=== PATIENT | female | born 1965 | race Two or more races ===

== ENCOUNTER 2017-05-13 17:06 | Emergency (ER) | payer OTHER ==
[~2017-05-13] VITALS: Ht 154.9 cm; Wt 66.2 kg
--- NOTE | 2017-05-13 17:20 | PHYS DOC ---
Past Medical History Past Medical History: Diverticulitis, Hypertension, Other Additional Past Medical Histor: aortic regurg, spasmatic colon,lft kidney removed, renal stent,cardiac cath Past Surgical History: Hysterectomy, Other Additional Past Surgical Histo: bilateral thumbs Alcohol Use: None Drug Use: None Adult General Chief Complaint Chief Complaint: WRIST PAIN HPI HPI Patient is a 51 year old female who presents with fall on outstretched hand complaining of pain to the right wrist denies any other injury. Moderate severity onset prior to arrival. Movement makes it worse. Review of Systems Review of Systems Constitutional: Denies fever or chills [] Eyes: Denies change in visual acuity, redness, or eye pain [] HENT: Denies nasal congestion or sore throat [] Respiratory: Denies cough or shortness of breath [] Cardiovascular: No additional information not addressed in HPI [] GI: Denies abdominal pain, nausea, vomiting, bloody stools or diarrhea [] : Denies dysuria or hematuria [] Musculoskeletal: Denies back pain or joint pain [] Integument: Denies rash or skin lesions [] Neurologic: Denies headache, focal weakness or sensory changes [] Endocrine: Denies polyuria or polydipsia [] Current Medications Current Medications Current Medications Medications (Trade) Dose Ordered Sig/Kevin Start Time Stop Time Status Last Admin Dose Admin Hydromorphone HCl (Dilaudid) 1 mg 1X ONCE 05/13/17 18:53 05/13/17 18:54 DC 05/13/17 18:49 1 MG Lidocaine/Sodium Bicarbonate (Buffered Lidocaine 1%) 20 ml 1X ONCE 05/13/17 18:30 05/13/17 18:31 DC 05/13/17 18:50 20 ML Midazolam HCl (Versed) 0.5 mg 1X ONCE 05/13/17 18:30 05/13/17 18:53 DC 05/13/17 18:49 0.5 MG Ondansetron HCl (Zofran) 4 mg 1X ONCE 05/13/17 17:30 05/13/17 17:31 DC 05/13/17 17:34 4 MG Allergies Allergies Allergies Coded Allergies Type Severity Reaction Last Updated Verified Penicillins Allergy Unknown 12/26/15 Yes Sulfa (Sulfonamide Antibiotics) Allergy Unknown 12/26/15 Yes amoxicillin Allergy Unknown 12/26/15 Yes erythromycin base Allergy Unknown 12/26/15 Yes codeine Adverse Reaction Intermediate Blacks out when she stands up. 05/13/17 Yes Physical Exam Physical Exam Constitutional: Well developed, well nourished, no acute distress, non-toxic appearance. [] HENT: Normocephalic, atraumatic, bilateral external ears normal, oropharynx moist, no oral exudates, nose normal. [] Eyes: PERRLA, EOMI, conjunctiva normal, no discharge. [] Neck: Normal range of motion, no tenderness, supple, no stridor. [] Cardiovascular:Heart rate regular rhythm, no murmur [] Lungs & Thorax: Bilateral breath sounds clear to auscultation [] Abdomen: Bowel sounds normal, soft, no tenderness, no masses, no pulsatile masses. [] Skin: Warm, dry, no erythema, no rash. [] Back: No tenderness, no CVA tenderness. [] Extremities: No tenderness, no cyanosis, no clubbing, ROM intact, no edema. [ Except for right upper extremity: No pain to palpation of the right shoulder elbow or forearm with the exception of the distal forearm and wrist shows an obvious deformity to plus pulses in the wrist are grossly intact.] Neurologic: Alert and oriented X 3, normal motor function, normal sensory function, no focal deficits noted. [] Psychologic: Affect normal, judgement normal, mood normal. [] Current Patient Data Vital Signs Vital Signs Date Time Temp Pulse Resp B/P (MAP) Pulse Ox O2 Delivery O2 Flow Rate FiO2 05/13/17 18:49 74 122/58 (79) 95 Nasal Cannula 2.0 05/13/17 18:05 20 05/13/17 17:17 97.5 97.5 EKG EKG [] Radiology/Procedures Radiology/Procedures Right wrist [fracture distal right radius intra-articular comminuted impacted and displaced dorsally my interpretation] Course & Med Decision Making Course & Med Decision Making Pertinent Labs and Imaging studies reviewed. (See chart for details) Procedure: fracture reduction of closed right dist radius fracture: 1% lido hematoma block 10 ml instilled, consent obtained, timeout by me, traction counter traction w recreation of mechanism, adequate reduction of deformity, neurovasc intact post splint application, given dilaudid for pain and versed for anxiolysis, sugartong splint applied by me, good alignment post splint antoinette post reduction xray reviewed. arm sling applied. Discussed w ortho for plan of care. [] Dragon Disclaimer Dragon Disclaimer This electronic medical record was generated, in whole or in part, using a voice recognition dictation system. Departure Departure Impression: Primary Impression: Closed fracture of right distal radius Disposition: 01 HOME, SELF-CARE Condition: IMPROVED Referrals: ADA BRUNO MD (PCP) JUAN BARROW MD Patient Instructions: Splint Care, [id number], Wrist Fracture, [id number] Additional Instructions: call ortho office at 8 am to get seen in office tomorrow to be set up for surgery this week. Scripts Oxycodone/Apap 5-325 (PERCOCET 5-325 MG TABLET) 1 Each Tablet 1 TAB PO PRN Q6HRS Y for PAIN, #14 TAB 0 Refills Prov: ANGEL MARQUIS MD 05/13/17 ANGEL MARQUIS MD May 13, 2017 17:20
[2017-05-13] MEDS ORDERED: ONDANSETRON PF 4 MG/2 ML VIAL. IV ONE (17:30)
[2017-05-13] MEDS ORDERED: HYDROmorphone 2 MG/ML VIAL IV ONE ×3 (17:30→18:53)
[2017-05-13] MEDS ORDERED: LIDOCAINE 1% / SOD BICARB 8.4% 20 ML VIAL. IJ ONE ×2 (18:19→18:30)
[2017-05-13] MEDS ORDERED: MIDAZOLAM HCL/PF 2 MG/2 ML VIAL. ONE (18:27)
[2017-05-13] MEDS ORDERED: MIDAZOLAM HCL/PF 2 MG/2 ML VIAL. IV ONE (18:30)
[2017-05-13 18:49] VITALS: BP 122/58
[2017-05-13] MEDS ORDERED: OXYC-323 PO (19:11)
--- NOTE | 2017-05-14 07:59 | RAD ---
Exam performed: 3 views wrist. History: Fall, right wrist pain, Pre and Postreduction radiograph. Date of service: 05/13/17 at 1847 and 1719 hours. 3 views right wrist at 1719 hours findings: Severely comminuted fractured distal right radius with dorsal dilation of the distal fracture fragment and obvious deformity is noted. There is diffuse soft tissue swelling. Early degenerative changes about the first carpometacarpal joint. No foreign body. Postreduction radiograph redemonstrates severely comminuted distal radial fracture which appears slightly improved alignment since previously. There is a small ossific fragment projecting distal to the ulna, suspected avulsion ultrasound process. Fine bony details obscured by the casting material. Impression: Comminuted intra-articular fracture distal right radius. Postreduction radiographs demonstrate improved alignment and positioning although fine bony details are obscured by the casting material
--- NOTE | 2017-05-14 13:52 | RAD ---
Exam performed: 3 views wrist. History: Fall, right wrist pain, Pre and Postreduction radiograph. Date of service: 05/13/17 at 1847 and 1719 hours. 3 views right wrist at 1719 hours findings: Severely comminuted fractured distal right radius with dorsal dilation of the distal fracture fragment and obvious deformity is noted. There is diffuse soft tissue swelling. Early degenerative changes about the first carpometacarpal joint. No foreign body. Postreduction radiograph redemonstrates severely comminuted distal radial fracture which appears slightly improved alignment since previously. There is a small ossific fragment projecting distal to the ulna, suspected avulsion ultrasound process. Fine bony details obscured by the casting material. Impression: Comminuted intra-articular fracture distal right radius. Postreduction radiographs demonstrate improved alignment and positioning although fine bony details are obscured by the casting material DICTATED and SIGNED BY: ALEENA EDOUARD MD DATE: 05/14/17 0752 MTDD
[2017-05-17] MEDS ORDERED: AMLO5TAB2 PO (11:17)
[2017-05-17] MEDS ORDERED: DULO30CA2 PO (11:17)
== END 2017-05-13 19:25 | disposition home or self-care (01) ==
LOC: ER 17:06
DX: S52.501A Unspecified fracture of the lower end of right radius, initial encounter for closed fracture (principal); I10 Essential (primary) hypertension; Z98.890 Other specified postprocedural states; Z88.0 Allergy status to penicillin; Z88.1 Allergy status to other antibiotic agents; Z88.2 Allergy status to sulfonamides; Z88.5 Allergy status to narcotic agent; W18.39XA Other fall on same level, initial encounter; Y93.89 Activity, other specified; Y99.8 Other external cause status; Y92.89 Other specified places as the place of occurrence of the external cause
CPT/HCPCS: 25605; 73110; 96374; 96375; 96376; 99284; J1170; J2250; J2405

== ENCOUNTER → 2017-05-17 | Outpatient (CLI) | payer OTHER ==
[2017-05-13 18:49] VITALS: BP 122/58
[~2017-05-17] MED LIST: AMLO5TAB2 PO; DULO30CA2 PO; OXYC-323 PO
[2017-05-17 11:43] LABS: BASO # 0.1 x10^3/uL (0.0-0.2); BASO % 1 % (0-3); EOS % 2 % (0-3); HEMATOCRIT 42.8 % (36.0-47.0); HEMOGLOBIN 14.8 g/dL (12.0-15.5); LYMPH # 1.9 x10^3/uL (1.0-4.8); LYMPH % 24 % (24-48); MEAN CORPUSCULAR HEMOGLOBIN 33 pg (25-35); MEAN CORPUSCULAR HGB CONC 35 g/dL (31-37); MEAN CORPUSCULAR VOLUME 95 fL (79-100); MONO % 6 % (0-9); NEUT % 68 % (31-73); PLATELET COUNT 264 x10^3/uL (140-400); RED BLOOD COUNT 4.49 x10^6/uL (3.50-5.40); RED CELL DISTRIBUTION WIDTH 14.3 % (11.5-14.5); WHITE BLOOD COUNT 7.8 x10^3/uL (4.0-11.0)
[2017-05-17 11:47] LABS: ALBUMIN 3.3 g/dL (3.4-5.0); ALBUMIN/GLOBULIN RATIO 0.8 (1.0-1.7); CALCIUM 8.8 mg/dL (8.5-10.1); CREATININE 1.2 mg/dL (0.6-1.0); GFR 47.2; TOTAL BILIRUBIN 0.7 mg/dL (0.2-1.0); TOTAL PROTEIN 7.2 g/dL (6.4-8.2)
[2017-05-17 11:59] LABS: INR 0.9 (0.8-1.1)
--- NOTE | 2017-05-17 15:24 | RAD ---
PA and lateral chest radiographs 05/17/2017 Clinical history: Preoperative evaluation prior to right wrist surgery. PA and lateral digital radiographs of the chest were obtained. No previous studies are available for comparison. The cardiac silhouette is normal in size. The thoracic aorta is mildly tortuous. No acute pulmonary infiltrate is seen. No pleural effusion or pneumothorax is noted. Surgical clips are seen within the right upper quadrant of the abdomen consistent with a cholecystectomy. Mild S-shaped curvature of the thoracolumbar spine is seen. Impression: No acute abnormality is seen.
== END | disposition home or self-care (01) ==
LOC: SURGPAT 10:35
PROVIDERS: ATTEND Orthopaedic Surgery
DX: Z01.818 Encounter for other preprocedural examination (principal)
CPT/HCPCS: 36415; 71020; 80053; 83036; 85025; 85610; 85730

== ENCOUNTER → 2017-05-18 | Outpatient (CLI) | payer OTHER ==
[2017-05-13 18:49] VITALS: BP 122/58
--- NOTE | 2017-05-18 13:48 | CARD ---
APPROVED REPORT EXAM: Two-dimensional and M-mode echocardiogram with Doppler and color Doppler. Other Information Quality : Good INDICATION Aortic Valve Disease 2D DIMENSIONS RVDd2.1 (2.9-3.5cm)Left Atrium(2D)3.4 (1.6-4.0cm) IVSd1.4 (0.7-1.1cm)Aortic Root(2D)2.5 (2.0-3.7cm) LVDd4.5 (3.9-5.9cm)LVOT Diameter1.9 (1.8-2.4cm) PWd1.3 (0.7-1.1cm)LVDs2.8 (2.5-4.0cm) FS (%) 30.0 %SV61.4 ml LVEF(%)60.0 (>50%) M-Mode DIMENSIONS Aortic Cusp Exc1.44 (1.5-2.0cm) Aortic Valve AoV Peak Alin.221.0cm/sAoV VTI45.0cm AO Peak GR.19.5mmHgLVOT VTI 24.22cm AO Mean GR.11mmHgAVA (VTI)1.60cm2 AI P 1/2 [id number] Mitral Valve MV E Usjbvgnz57.0cm/sMV DECEL [id number] MV A Xjdgpyqs924.2cm/sE/A Ratio0.8 TDI Lateral E' P. V6.37cm/sMedial E' P. V5.21cm/s E/Lateral E'13.5E/Medial E'16.5 Tricuspid Valve TR P. Echlqmhw483yt/sRAP ASRCOPQJ5hdXe TR Peak Gr.30dwSqNDDX85flUj Pulmonary Vein S1 Zbszjdjb67.3cm/sS2 Ymtrtsby81.83cm/s D2 Nshwydzz41.8cm/s LEFT VENTRICLE The left ventricle is normal size. There is mild concentric left ventricular hypertrophy. The left ve ntricular systolic function is normal. The Ejection Fraction is 55-60%. There is normal LV segmental wall motion. Transmitral Doppler flow pattern is Grade I-abnormal relaxation pattern. RIGHT VENTRICLE The right ventricle is normal size. The right ventricular systolic function is normal. ATRIA The left atrium size is normal. The right atrium size is normal. The interatrial septum is intact wit h no evidence for an atrial septal defect or patent foramen ovale as noted on 2-D or Doppler imaging. AORTIC VALVE The aortic valve is mildly thickened with decreased opening. Doppler and Color Flow revealed mild to moderate aortic regurgitation. Calculated aortic valve area is 1.6 cm2 with maximum pressure gradient of 20 mmHg and mean pressure gradient of 11 mmHg. Doppler and color-flow analysis revealed mild aort ic stenosis. MITRAL VALVE The mitral valve is calcified but opens well. There is no evidence of mitral valve prolapse. There is no mitral valve stenosis. Doppler and Color-flow revealed mild mitral regurgitation. TRICUSPID VALVE The tricuspid valve is normal in structure and function. Doppler and Color Flow revealed trace tricus pid regurgitation. There is mild pulmonary hypertension. The PA pressure was estimated at 34 mmHg. Th ere is no tricuspid valve stenosis. PULMONIC VALVE The pulmonary valve is normal in structure and function. Doppler and Color Flow revealed trace pulmon ic valvular regurgitation. There is no pulmonic valvular stenosis. GREAT VESSELS The aortic root is normal in size. The ascending aorta is normal in size. The IVC is normal in size a nd collapses >50% with inspiration. PERICARDIAL EFFUSION There is no evidence of significant pericardial effusion. Critical Notification Critical Value: No <Conclusion> The left ventricular systolic function is normal. The Ejection Fraction is 55-60%. There is normal LV segmental wall motion. Transmitral Doppler flow pattern is Grade I-abnormal relaxation pattern. Mild aortic stenosis. Mild to moderate aortic regurgitation. Mild mitral regurgitation. Trace tricuspid regurgitation. The PA pressure was estimated at 34 mmHg. There is no evidence of significant pericardial effusion.
== END | disposition home or self-care (01) ==
LOC: ECHO 10:40
PROVIDERS: ATTEND Internal Medicine Cardiovascular Disease
DX: I08.3 Combined rheumatic disorders of mitral, aortic and tricuspid valves (principal); I27.2 Other secondary pulmonary hypertension; I35.0 Nonrheumatic aortic (valve) stenosis
CPT/HCPCS: 93306

== ENCOUNTER → 2017-05-29 | Day surgery (SDC) | payer OTHER ==
--- NOTE | 2017-05-28 12:22 | PDOC1 ---
History and Physical Date of Admission Date of Admission DATE: 05/29/17 Identification/Chief Complaint Chief Complaint right wrist pain Problems: Source Source: Chart review History of Present Illness History of Present Illness The patient is a 51 year old female with right wrist pain. She slipped on a deck on 05.13.17 and fell on an outstretched hand. She was reduced at [facility] on 05.13.17 after xrays showed a comminuted intra-articular fracture of her distal right radius. She has a history of bilateral CMC joint reconstruction with palmar oblique ligament reconstruction using FCR tendon autograft. Past Medical History Cardiovascular: HTN Past Surgical History Past Surgical History bilateral thumb CMC joint arthroplasty Past Surgical History: Cholecystectomy, Hysterectomy Family History Family History: Diabetes, Heart Disease, Hypertension, Kidney Disease Social History Smoke: 1 pack per day ALCOHOL: none Drugs: None Current Medications Current Medications Active Scripts Active Percocet 5-325 Mg Tablet (Oxycodone/Acetaminophen) 1 Each Tablet 1 Tab PO PRN Q6HRS PRN Reported Cymbalta (Duloxetine Hcl) 30 Mg Capsule. 1 Cap PO DAILY Amlodipine Besylate 5 Mg Tablet 5 Mg PO DAILY Allergies Allergies: Coded Allergies: Penicillins (Verified Allergy, Intermediate, 05/28/17) Sulfa (Sulfonamide Antibiotics) (Verified Allergy, Intermediate, 05/28/17) amoxicillin (Verified Allergy, Intermediate, 05/28/17) erythromycin base (Verified Allergy, Intermediate, 05/28/17) adhesive tape (Verified Allergy, Mild, Rash, 05/28/17) codeine (Verified Adverse Reaction, Intermediate, Blacks out when she stands up., 05/28/17) Physical Exam General: Alert, Oriented X3, Cooperative, No acute distress HEENT: Atraumatic, EOMI Lungs: Normal air movement Heart: RRR Extremities: No clubbing, No cyanosis, Normal pulses, Other (The wrist is in a splint. There is swelling at the wrist and fingers. well healed surgical scars. The alignment is near normal. There is obvious tenderness at the wrist. Motion is decreased but there is no evidence of specific neurovascular injury. Capillary refill is normal. Pulse is not assessable due to the tenderness of the wrist. Light touch sensation is slightly decreased. Motor function is present for the radial ulnar and median nerves.) Skin: No rashes, No breakdown, No significant lesion Neuro: Normal speech, Sensation intact Psych/Mental Status: Mental status NL, Mood NL Images Images X-Ray report reviewed X-Ray visual images independently reviewed. [facility] on 05.13.17 after xrays showed a comminuted intra-articular fracture of her distal right radius. VTE Prophylaxis Ordered VTE Prophylaxis Devices: Yes VTE Pharmacological Prophylaxi: Yes Assessment/Plan Assessment/Plan Dr. Spangler recommended open reduction and internal fixation of the right wrist fracture. Risks of surgery were discussed and she agrees to proceed. She will increase her Oxycodone for more pain management before surgery. The patient understands they will need to obtain pre-operative clearance from their primary care doctor and inventory accountant prior to surgery. Followup 10-14 days after surgery. LG PIERCE May 28, 2017 12:22
[~2017-05-29] VITALS: Ht 158.8 cm; Wt 65.8 kg
[~2017-05-29] MED LIST changes: +BUPIVACAINE-EPI 0.25%-1:200000 MPF 30 ML VIAL. ONE; +CLINDAMYCIN 600MG PREMIX 50 ML IV PRN; +DEXAMETHASONE SOD PHOS 20 MG/5 ML VIAL. ONE; +IV RINGERS,LACTATED 1000ML 1,000 ML IV SCH; +LABETALOL 20 MG/4 ML DISP.SYRIN. ONE; +LIDOCAINE 1% 1 ML SYRINGE. ID PRN; +LIDOCAINE 2% PF Vial for OR 5 ML VIAL. ONE; +MIDAZOLAM HCL/PF 2 MG/2 ML VIAL. ONE; +ONDANSETRON PF 4 MG/2 ML VIAL. IV PRN; +ONDANSETRON PF 4 MG/2 ML VIAL. ONE; +PHENYLEPHRINE in 0.9% NACL PF 1 MG/10 ML DISP.SYRIN. IV ONE; +PROCHLORPERAZINE 10 MG/2 ML VIAL. IV PRN; +PROPOFOL 20 ML IV ONE; +SEVOFLURANE 61 TO 120 MINUTES. IH ONE; +SEVOFLURANE > 120 MINUTES. IH ONE; +ePHEDrine PF IN SALINE 50 MG/5 ML DISP.SYRIN IV ONE; +fentaNYL PF VIAL 100 MCG/2 ML VIAL IV PRN; +fentaNYL PF VIAL 100 MCG/2 ML VIAL ONE; +oxyCODONE/APAP 5/325 1 TAB TABLET PO PRN
[2017-05-29] MEDS: fentaNYL PF VIAL 100 MCG/2 ML VIAL IV PRN ×4 (13:20→14:17)
--- NOTE | 2017-05-29 13:36 | PDOC4 ---
Operative Note Operative Note DATE: May 29, 2017 PREOPERATIVE DIAGNOSIS: right distal radius intra-articular fracture with displacement. POSTOPERATIVE DIAGNOSIS: Same. PROCEDURE: Open treatment with internal fixation, intraarticular 3 or more part fracture. SURGEON: Juan Spangler MD. PRODUCT DEVELOPMENT COORDINATOR: Dominique Evans PA-C ANESTHESIA: General. ESTIMATED BLOOD LOSS: 25 mL. COMPLICATIONS: None. SPECIMENS: None. DRAINS: None. Tourniquet time: 72 minutes INDICATION FOR PROCEDURE: The patient is a 51 year-old who fell fracturing the wrist. X-rays showed an intraarticular fracture with displacement and shortening. I recommended open treatment with internal fixation. We talked about potential risks of surgery such as bleeding, infection, stiffness, need for hardware removal or other potential surgical or anesthetic complications. The patient stated understanding of the risks, benefits and alternatives. Written consent was obtained and the patient desired to proceed with surgery. PROCEDURE IN DETAIL: The patient was identified in the preoperative holding area. The correct wrist was marked by the surgeon. The patient was taken to the operating room, where a general anesthetic was used. Preoperative antibiotics were given intravenously. A timeout procedure was performed. Tourniquet was used on the upper arm. The limb was prepped sterilely and sterile drapes were applied. An Esmarch bandage was used to exsanguinate the limb and the tourniquet was inflated to 275 mmHg. The volar approach of Peng was used distally. Sharp dissection was used and Bovie electrocautery was used as needed for hemostasis. The flexor carpi radialis tendon was retracted ulnarly to protect the median nerve. The brachioradialis was retracted radially to protect the radial artery. My accounting manager assistant controller held small Hohmann retractors on the radial side of the distal fragment and ulnar side of the proximal fragment to help maintain reduction. A Weitlaner retractor was also placed. Subperiosteal dissection of the pronator quadratus was performed after an L incision was made and the muscle was reflected across the fracture site. The fracture was easily identified but markedly displaced, comminuted and unstable. I performed a reduction first using a [place] elevator to disimpact the fragments, and using longitudinal traction, palmar angulation and ulnar deviation. My accounting manager assistant controller held this reduction using a towel distally to help maintain the hand position as well as the traction, and then I applied the volar locked plate. We also used preliminary K-wire fixation. I placed cortical nonlocking screws proximally and locking screws distally and more locking screws proximally and I confirmed the intraarticular reduction with multiple checks on the image intensifier as I placed the screws. I checked the fixation, and one of the screws appeared intra- articular. I tried to remove that screw in the usual fashion, but the head broke off. I made a dorsal incision and was able to identify the screw and remove it by advancing it from dorsal to volar. It was intra-articular but had not caused any damage to the joint except for the tiny perforation in the radial articular surface. The intra-articular reduction appeared anatomic. After satisfactory reduction and satisfactory fixation with all the screws, final images were taken. 2.5 mL of demineralized bone matrix was added due to the severely comminuted fracture, with poor underlying bone quality. Copious irrigation was used. The tourniquet was released and Bovie electrocautery was used for hemostasis. Local anesthetic was injected. The incision was closed with 3-0 Vicryl on the pronator quadratus, 3-0 Vicryl in the subcutaneous tissues and lindsay in the skin. Xeroform and a sterile dressing and a volar splint were applied. Needle and sponge counts were correct. There were no apparent complications. JUAN SPANGLER MD May 29, 2017 13:36
[2017-05-29] MEDS: LABETALOL 20 MG/4 ML DISP.SYRIN. IVP PRN ×2 (13:42→14:49)
[2017-05-29 15:10] VITALS: BP 169/66
== END | disposition home or self-care (01) ==
LOC: SURG 06:39
PROVIDERS: ATTEND Orthopaedic Surgery
DX: S52.571A Other intraarticular fracture of lower end of right radius, initial encounter for closed fracture (principal); X58.XXXA Exposure to other specified factors, initial encounter; Y93.89 Activity, other specified; Y92.89 Other specified places as the place of occurrence of the external cause; Y99.9 Unspecified external cause status; I10 Essential (primary) hypertension; Z90.49 Acquired absence of other specified parts of digestive tract; Z90.710 Acquired absence of both cervix and uterus; Z87.39 Personal history of other diseases of the musculoskeletal system and connective tissue; M19.91 Primary osteoarthritis, unspecified site; F41.9 Anxiety disorder, unspecified; Z72.0 Tobacco use; Z88.6 Allergy status to analgesic agent; Z88.1 Allergy status to other antibiotic agents; Z88.0 Allergy status to penicillin; Z88.2 Allergy status to sulfonamides; Z91.048 Other nonmedicinal substance allergy status
CPT/HCPCS: 25608; 36415; 86850; 86900; 86901; A4215; C1713; J0780; J1100; J2250; J2370; J2405; J2704; J3010; J3490; J2001

== ENCOUNTER → 2017-05-31 | Outpatient (CLI) | payer OTHER ==
[2017-05-29 15:10] VITALS: BP 169/66
[~2017-05-31] MED LIST changes: -BUPIVACAINE-EPI 0.25%-1:200000 MPF 30 ML VIAL. ONE; -CLINDAMYCIN 600MG PREMIX 50 ML IV PRN; -DEXAMETHASONE SOD PHOS 20 MG/5 ML VIAL. ONE; -IV RINGERS,LACTATED 1000ML 1,000 ML IV SCH; -LABETALOL 20 MG/4 ML DISP.SYRIN. ONE; -LIDOCAINE 1% 1 ML SYRINGE. ID PRN; -LIDOCAINE 2% PF Vial for OR 5 ML VIAL. ONE; -MIDAZOLAM HCL/PF 2 MG/2 ML VIAL. ONE; -ONDANSETRON PF 4 MG/2 ML VIAL. IV PRN; -ONDANSETRON PF 4 MG/2 ML VIAL. ONE; -PHENYLEPHRINE in 0.9% NACL PF 1 MG/10 ML DISP.SYRIN. IV ONE; -PROCHLORPERAZINE 10 MG/2 ML VIAL. IV PRN; -PROPOFOL 20 ML IV ONE; -SEVOFLURANE 61 TO 120 MINUTES. IH ONE; -SEVOFLURANE > 120 MINUTES. IH ONE; -ePHEDrine PF IN SALINE 50 MG/5 ML DISP.SYRIN IV ONE; -fentaNYL PF VIAL 100 MCG/2 ML VIAL IV PRN; -fentaNYL PF VIAL 100 MCG/2 ML VIAL ONE; -oxyCODONE/APAP 5/325 1 TAB TABLET PO PRN
== END | disposition home or self-care (01) ==
LOC: LAB 10:01
PROVIDERS: ATTEND Physician Assistant Surgical
DX: S52.501D Unspecified fracture of the lower end of right radius, subsequent encounter for closed fracture with routine healing (principal); X58.XXXD Exposure to other specified factors, subsequent encounter
CPT/HCPCS: 36415; 82306

== ENCOUNTER → 2018-03-12 | Outpatient (CLI) | payer OTHER | END | disposition home or self-care (01) | LOC: KCIC MAMMO 12:00 | DX: Z12.31 Encounter for screening mammogram for malignant neoplasm of breast (principal) | CPT/HCPCS: 77067 ==

== ENCOUNTER → 2018-06-21 | Outpatient (CLI) | payer OTHER ==
[2017-05-29 15:10] VITALS: BP 169/66
[~2018-06-21] MED LIST changes: -AMLO5TAB2 PO; +AMLO5TAB7 PO
--- NOTE | 2018-06-21 11:49 | CARD ---
MR#: [id number] Date of Study: 06/21/2018 Ordering Physician: ANIKET CELIS, Referring Physician: ANIKET CELIS, Tech: Tiffany Aguiar [facility] APPROVED REPORT EXAM: Two-dimensional and M-mode echocardiogram with Doppler and color Doppler. Other Information Quality : Good INDICATION Aoritc Regurgitation 2D DIMENSIONS RVDd2.4 (2.9-3.5cm)Left Atrium(2D)3.3 (1.6-4.0cm) IVSd1.1 (0.7-1.1cm)Aortic Root(2D)2.5 (2.0-3.7cm) LVDd4.5 (3.9-5.9cm)LVOT Diameter1.9 (1.8-2.4cm) PWd1.2 (0.7-1.1cm)LVDs3.0 (2.5-4.0cm) FS (%) 32.0 %SV55.1 ml LVEF(%)60.4 (>50%) Aortic Valve AoV Peak Alin.234.5cm/sAoV VTI46.5cm AO Peak GR.22.0mmHgLVOT Peak Alin.86.6cm/s AO Mean GR.10mmHgAVA (VMAX)1.07cm2 JORGE (VTI)1.38cj8QK P 1/2 Vcgu031xk Mitral Valve MV E Iwolhhhf11.9cm/sMV DECEL [id number] MV A Ginetzva419.4cm/sE/A Ratio0.7 Tricuspid Valve TR P. Cevgtdbb242mo/sRAP ZMEALNGZ8snIj TR Peak Gr.70ulStOBKQ25hbPn Pulmonary Vein S1 Nhgowtzq12.0cm/sD2 Uvjbwsnn85.7cm/s LEFT VENTRICLE The left ventricle is normal size. There is mild concentric left ventricular hypertrophy. The left ve ntricular systolic function is normal. The Ejection Fraction is 55-60%. There is normal LV segmental wall motion. Transmitral Doppler flow pattern is Grade I-abnormal relaxation pattern. RIGHT VENTRICLE The right ventricle is normal size. The right ventricular systolic function is normal. ATRIA The left atrium size is normal. The right atrium size is normal. The interatrial septum is intact wit h no evidence for an atrial septal defect or patent foramen ovale as noted on 2-D or Doppler imaging. AORTIC VALVE The aortic valve is calcified but opens well. Doppler and Color Flow revealed mild aortic regurgitati on. Calculated aortic valve area is 1.6 cm2 with maximum pressure gradient of 22 mmHg and mean pressu re gradient of 11 mmHg. Doppler and color-flow analysis revealed mild aortic stenosis. MITRAL VALVE The mitral valve is normal in structure and function. There is no evidence of mitral valve prolapse. There is no mitral valve stenosis. Doppler and Color-flow revealed trace to mild mitral regurgitation . TRICUSPID VALVE The tricuspid valve is normal in structure and function. Doppler and Color Flow revealed physiologica l tricuspid regurgitation. The PA pressure was estimated at 27 mmHg. There is no tricuspid valve sten osis. PULMONIC VALVE The pulmonic valve is not well visualized. Doppler and Color Flow revealed trace to mild pulmonic alok vular regurgitation. There is no pulmonic valvular stenosis. GREAT VESSELS The aortic root is normal in size. The ascending aorta is normal in size. The IVC is normal in size a nd collapses >50% with inspiration. PERICARDIAL EFFUSION There is no evidence of significant pericardial effusion. Critical Notification Critical Value: No <Conclusion> The left ventricular systolic function is normal. The Ejection Fraction is 55-60%. There is normal LV segmental wall motion. Transmitral Doppler flow pattern is Grade I-abnormal relaxation pattern. Mild aortic stenosis. Mild aortic regurgitation. Trace to mild mitral regurgitation. There is no evidence of significant pericardial effusion. Signed by : Song Walker, Electronically Approved : 06/21/2018 11:47:45
--- NOTE | 2018-06-21 12:24 | RAD ---
MR#: [id number] Date of Study: 06/21/2018 Ordering Physician: ANIKET CELIS, Referring Physician: ANIKET CELIS, Tech: Latrice Delcid, DONAVAN, RVT, RTR APPROVED REPORT Patient Location: OUT-PATIENT Indications Peripheral Vascular Disease and Atrophic Left Kidney Renal Artery Doppler Right Renal Artery Left Renal Arter y Proximal 213.1/41.4 cm/secProximal Mid 150.2/34.4 cm/secMid Distal 132.7/28.2 cm/secDistal Renal/Aorta Ratio 2.23Renal/Aorta Ratio Prox. Resistive Index 0.81Prox. Resistive Index Mid Resistive Index 0.77Mid Resistive Index Distal Resistive Index 0.79Distal Resistive Index Rt. Segmental A. 33.7/10.8 cm/secLt. Segmental A. Aortic Doppler VelocityWaveform Mid. Aorta 95.4 cm/secBiphasic Findings Grayscale images of the left kidney were significantly limited likely due to atrophic kidney and/or p rior nephrectomy. Based on prior CT scans it appears that the left kidney is atrophic. Spectral waveforms in the right proximal, middle and distal renal arteries are suggestive of mild tomas nosis most prominent in the proximal right renal artery. The peak systolic velocities a proximally 21 3 7 m/s with a resistive indices of 0.81 and a renal to aortic ratio of 2.2. Grossly based on velocit y criteria this would constitute less than 50% stenosis. The right kidney measures 11.1 x 4.2 x 4.8 c m. Critical Notification Critical Value: No <Conclusion> Probable mild proximal right renal artery stenosis. No significant focal stenosis identified. Signed by : Aniket Celis, Electronically Approved : 06/21/2018 12:23:18
== END | disposition home or self-care (01) ==
LOC: US 10:09
PROVIDERS: ATTEND Internal Medicine Cardiovascular Disease
DX: I35.1 Nonrheumatic aortic (valve) insufficiency (principal); I10 Essential (primary) hypertension; M19.90 Unspecified osteoarthritis, unspecified site; F41.9 Anxiety disorder, unspecified; F17.200 Nicotine dependence, unspecified, uncomplicated; Z90.49 Acquired absence of other specified parts of digestive tract; Z86.010 Personal history of colon polyps; Z90.710 Acquired absence of both cervix and uterus
CPT/HCPCS: 93306; 93975

== ENCOUNTER → 2020-03-16 | Outpatient (CLI) | payer OTHER ==
[2019-08-01 11:00] VITALS: BP 139/55
[~2020-03-16] MED LIST changes: +AMLO5TAB10 PO; -AMLO5TAB7 PO; +EVOL140S2 SQ; -OXYC-323 PO; +OXYC1TAB15 PO; +SPIR25TA5 PO
--- NOTE | 2020-03-16 16:05 | CARD ---
MR#: [id number] Date of Study: 03/16/2020 Ordering Physician: ANIKET CELIS, Referring Physician: ANIKET CELIS, Tech: Tiffany Aguiar [facility] APPROVED REPORT EXAM: Two-dimensional and M-mode echocardiogram with Doppler and color Doppler. Other Information Quality : Good INDICATION Aortic Insufficiency 2D DIMENSIONS RVDd2.1 (2.9-3.5cm)Left Atrium(2D)2.3 (1.6-4.0cm) IVSd0.9 (0.7-1.1cm)Aortic Root(2D)2.7 (2.0-3.7cm) LVDd4.5 (3.9-5.9cm)LVOT Diameter2.0 (1.8-2.4cm) PWd1.0 (0.7-1.1cm)LVDs3.3 (2.5-4.0cm) FS (%) 28.0 %SV50.6 ml LVEF(%)54.3 (>50%) Aortic Valve AoV Peak Alin.268.4cm/sAoV VTI48.6cm AO Peak GR.28.8mmHgLVOT Peak Alin.124.3cm/s AO Mean GR.15mmHgAVA (VMAX)1.47cm2 JORGE (VTI)1.26xv9GU P 1/2 Hfxa492kl Mitral Valve MV E Gpgowonw13.7cm/sMV DECEL MXZH026mm MV A Jwtisjjr316.6cm/sE/A Ratio0.6 Tricuspid Valve TR P. Szcqdlss923zd/sRAP KOOVYARF1pxQa TR Peak Gr.40bpMjVBOF51bfVo Pulmonary Vein S1 Usrbbeur67.9cm/sD2 Cbftvuvc34.2cm/s LEFT VENTRICLE The left ventricle is normal size. There is normal left ventricular wall thickness. The left ventricu lar systolic function is normal and the ejection fraction is within normal range. The Ejection Fracti on is 55-60%. There is normal LV segmental wall motion. Transmitral Doppler flow pattern is Grade I-a bnormal relaxation pattern. RIGHT VENTRICLE The right ventricle is normal size. The right ventricular systolic function is normal. ATRIA The left atrium size is normal. The right atrium size is normal. The interatrial septum is intact wit h no evidence for an atrial septal defect or patent foramen ovale as noted on 2-D or Doppler imaging. AORTIC VALVE The aortic valve is calcified and displays decreased opening. Doppler and Color Flow revealed eccentr ic, moderate aortic regurgitation. Calculated aortic valve area is 1.7 cm2 with maximum pressure grad ient of 29 mmHg and mean pressure gradient of 15 mmHg. Doppler and color-flow analysis revealed mild aortic stenosis. MITRAL VALVE The mitral valve is calcified but opens well. There is no evidence of mitral valve prolapse. There is no mitral valve stenosis. Doppler and Color-flow revealed trace mitral regurgitation. TRICUSPID VALVE The tricuspid valve is normal in structure and function. Doppler and Color Flow revealed no tricuspid valve regurgitation noted. There is no tricuspid valve stenosis. PULMONIC VALVE The pulmonic valve is not well visualized. Doppler and Color Flow revealed no pulmonic valvular regur gitation. There is no pulmonic valvular stenosis. GREAT VESSELS The aortic root is normal in size. The ascending aorta is normal in size. The IVC is normal in size a nd collapses >50% with inspiration. PERICARDIAL EFFUSION There is no evidence of significant pericardial effusion. Critical Notification Critical Value: No <Conclusion> The left ventricular systolic function is normal and the ejection fraction is within normal range. Th e Ejection Fraction is 55-60%. There is normal LV segmental wall motion. Calculated aortic valve area is 1.7 cm2 with maximum pressure gradient of 29 mmHg and mean pressure g radient of 15 mmHg. Doppler and color-flow analysis revealed mild aortic stenosis. Doppler and Color Flow revealed eccentric, moderate aortic regurgitation. Signed by : Aniket Celis, Electronically Approved : 03/16/2020 16:04:23
--- NOTE | 2020-03-16 16:17 | RAD ---
MR#: [id number] Date of Study: 03/16/2020 Ordering Physician: ANIKET CELIS, Referring Physician: ANIKET CELIS, Tech: Latrice Delcid, DONAVAN, RVT, RTR APPROVED REPORT Patient Location: OUT-PATIENT Indications Uncontrolled HTN Risk Factors Peripheral Vascular Disease; Atrophic Left Kidney Renal Artery Doppler Right Renal Artery Left Renal Arter y Proximal 145.6/33.9 cm/secProximal Mid 160.3/38.2 cm/secMid Distal 71.8/18.2 cm/secDistal Renal/Aorta Ratio 0.00Renal/Aorta Ratio Prox. Resistive Index 0.77Prox. Resistive Index Mid Resistive Index 0.76Mid Resistive Index Distal Resistive Index 0.75Distal Resistive Index Rt. Segmental A. 33.8/9.1 cm/secLt. Segmental A. Renal Measurements RightLeft Kidney Dapeot35.54 cm 4.41 cmKidney Length Right Additional FindingsLeft Additional Findings Aortic Doppler VelocityWaveform Mid. Aorta 88.3 cm/sec Findings Grayscale images of the right kidney demonstrate normal size. The proximal, distal and mid renal art joaquin velocities are grossly within normal limits with normal resistive indices and renal to aortic rat ios. Overall this is a technically difficult study. In the left iliac fossa the left kidney is not well v isualized and likely is very atrophic. Critical Notification Critical Value: No <Conclusion> 1. No significant renal artery stenosis on the right side, the left kidney appears to be atrophic an d not well visualized. Cannot rule out renal artery stenosis in the left kidney. Signed by : Aniket Celis, Electronically Approved : 03/16/2020 16:16:43
== END | disposition home or self-care (01) ==
LOC: ECHO 12:40
PROVIDERS: ATTEND Internal Medicine Cardiovascular Disease
DX: I08.0 Rheumatic disorders of both mitral and aortic valves (principal); I73.9 Peripheral vascular disease, unspecified; N26.1 Atrophy of kidney (terminal)
CPT/HCPCS: 93306; 93975

== ENCOUNTER 2020-04-21 06:23 | Emergency (ER) | payer OTHER ==
[~2020-04-21] VITALS: Ht 162.6 cm; Wt 90.1 kg
[2020-04-21 07:07] LABS: BASO # 0.1 x10^3/uL (0.0-0.2); BASO % 1 % (0-3); EOS # 0.3 x10^3/uL (0.0-0.7); EOS % 3 % (0-3); HEMATOCRIT 46.4 % (36.0-47.0); LYMPH # 2.7 x10^3/uL (1.0-4.8); LYMPH % 26 % (24-48); MEAN CORPUSCULAR HEMOGLOBIN 33 pg (25-35); MEAN CORPUSCULAR HGB CONC 34 g/dL (31-37); MEAN CORPUSCULAR VOLUME 94 fL (79-100); MONO # 0.6 x10^3/uL (0.0-1.1); MONO % 6 % (0-9); NEUT # 6.7 x10^3/uL (1.8-7.7); NEUT % 65 % (31-73); PLATELET COUNT 286 x10^3/uL (140-400); RED BLOOD COUNT 4.92 x10^6/uL (3.50-5.40); RED CELL DISTRIBUTION WIDTH 14.1 % (11.5-14.5); WHITE BLOOD COUNT 10.4 x10^3/uL (4.0-11.0)
[2020-04-21 07:23] LABS: CALCIUM 8.8 mg/dL (8.5-10.1); CREATININE 1.2 mg/dL (0.6-1.0); GFR 46.6; POTASSIUM 3.8 mmol/L (3.5-5.1)
--- NOTE | 2020-04-21 07:26 | PHYS DOC ---
Past Medical History Past Medical History: Diverticulitis, High Cholesterol, Hypertension, Other Additional Past Medical Histor: aortic regurg, spasmatic colon,lft kidney nonfunctioning Past Surgical History: Cholecystectomy, Hysterectomy, Other Additional Past Surgical Histo: bilateral thumbs, cardiac cath, renal stent, cyst removed on back Smoking Status: Current Every Day Smoker Alcohol Use: None Drug Use: None General Adult EDM: Chief Complaint: HYPERTENSION HPI: HPI: The history was obtained from the patient. Patient is a 54-year-old female with PMH aortic regurgitation, hyperlipidemia, hypertension, tobacco abuse, GERD, unilateral kidney who presents with multiple complaints. Patient states that she woke up this morning and did not feel well. She states that she felt very shaky. She states that over the weekend she was also not feeling well. She states that she has been having some epigastric burning discomfort. She does note that she has a history of "indigestion." She states that whenever her blood pressure becomes elevated she seems to have discomfort in her epigastric region. She states this prompted her to check her blood pressure over the weekend and noted to be elevated with approximately systolic blood pressure of 200. She did speak with her overcoil stepper Dr. Celis who adjusted her blood pressure medication. He discontinued her home spironolactone. She states that he started her on 5 mg of amlodipine. She states this has improved her blood pressure over the past several days. She states that due to her not feeling well she checked her blood pressure again and noted to be a systolic approximate 200 today. She has not taken her home amlodipine. She does note some mid thoracic back discomfort intermittently over the past few days. She states she did develop chest pain on Sunday evening while at rest. She states it lasted several minutes and resolve spontaneously. She does note a history of aortic irritation that her overcoil stepper is managing. She did have an echo in March that she has not heard results back from yet. She denies any unexplained weight loss. She does note loose stool but states she has had this ever since she had her gallbladder removed a year ago. She does note feelings of fevers and chills. Denies any known exposure to coronavirus. She states that her greatest concern is her blood pressure and back pain at this time. Patient denies any urinary retention, stool incontinence, saddle anesthesia, history of IV drug use, or history of cancer. Review of Systems: Review of Systems: Constitutional: Positive for chills Eyes: Denies change in visual acuity. [] HENT: Denies nasal congestion or sore throat. [] Respiratory: Denies cough or shortness of breath. [] Cardiovascular: Positive for chest pain GI: Positive for abdominal pain and nausea and diarrhea : Denies dysuria. [] Musculoskeletal: Positive for back pain Integument: Denies rash. [] Neurologic: Denies headache, focal weakness or sensory changes. [] Endocrine: Denies polyuria or polydipsia. [] Lymphatic: Denies swollen glands. [] Psychiatric: Denies depression or anxiety. [] Heart Score: HEART Score for Chest Pain: HEART Score for Chest Pain Response (Comments) Value History Slighlty/Non-Suspicious 0 ECG Nonspecific Repolarizatio 1 Age >45 - < 65 1 Risk Factors 1 or 2 Risk Factors 1 Troponin < Normal Limit 0 Total 3 Risk Factors: Risk Factors: DM, Current or recent (<one month) smoker, HTN, HLP, family history of CAD, obesity. Risk Scores: Score 0 - 3: 2.5% MACE over next 6 weeks - Discharge Home Score 4 - 6: 20.3% MACE over next 6 weeks - Admit for Clinical Observation Score 7 - 10: 72.7% MACE over next 6 weeks - Early Invasive Strategies Current Medications: Current Medications Medications (Trade) Dose Ordered Sig/Kevin Start Time Stop Time Status Last Admin Dose Admin Aspirin (Aspirin Chewable) 324 mg 1X ONCE 04/21/20 07:00 04/21/20 07:04 DC Allergies: Allergies: Allergies Coded Allergies Type Severity Reaction Last Updated Verified Penicillins Allergy Intermediate 05/29/17 Yes Sulfa (Sulfonamide Antibiotics) Allergy Intermediate 05/29/17 Yes adhesive tape Allergy Intermediate Rash 05/29/17 Yes amoxicillin Allergy Intermediate 05/29/17 Yes erythromycin base Allergy Intermediate 05/29/17 Yes codeine Adverse Reaction Intermediate Blacks out when she stands up. 05/29/17 Yes Physical Exam: PE: Constitutional: Well developed, well nourished, no acute distress, non-toxic appearance. [] HENT: Normocephalic, atraumatic, bilateral external ears normal, oropharynx moist, no oral exudates, nose normal. [] Eyes: PERRLA, EOMI, conjunctiva normal, no discharge. [] Neck: Normal range of motion, no tenderness, supple, no stridor. [] Cardiovascular:Heart rate regular rhythm, no murmur [] Lungs & Thorax: Bilateral breath sounds clear to auscultation [] Abdomen: soft, no tenderness, no masses, no pulsatile masses. [] Skin: Warm, dry, no erythema, no rash. [] Back: No tenderness, no CVA tenderness. [] Extremities: No tenderness, no cyanosis, no clubbing, ROM intact, no edema. [] Neurologic: Alert and oriented X 3, normal motor function, normal sensory function, no focal deficits noted. [] Psychologic: Affect normal, judgement normal, mood normal. [] Current Patient Data: Labs: Laboratory Tests Test 04/21/20 06:45 White Blood Count 10.4 x10^3/uL (4.0-11.0) Red Blood Count 4.92 x10^6/uL (3.50-5.40) Hemoglobin 16.0 g/dL (12.0-15.5) H Hematocrit 46.4 % (36.0-47.0) Mean Corpuscular Volume 94 fL (79-100) Mean Corpuscular Hemoglobin 33 pg (25-35) Mean Corpuscular Hemoglobin Concent 34 g/dL (31-37) Red Cell Distribution Width 14.1 % (11.5-14.5) Platelet Count 286 x10^3/uL (140-400) Neutrophils (%) (Auto) 65 % (31-73) Lymphocytes (%) (Auto) 26 % (24-48) Monocytes (%) (Auto) 6 % (0-9) Eosinophils (%) (Auto) 3 % (0-3) Basophils (%) (Auto) 1 % (0-3) Neutrophils # (Auto) 6.7 x10^3/uL (1.8-7.7) Lymphocytes # (Auto) 2.7 x10^3/uL (1.0-4.8) Monocytes # (Auto) 0.6 x10^3/uL (0.0-1.1) Eosinophils # (Auto) 0.3 x10^3/uL (0.0-0.7) Basophils # (Auto) 0.1 x10^3/uL (0.0-0.2) Laboratory Tests 04/21/20 06:45 Vital Signs: Vital Signs Date Time Temp Pulse Resp B/P (MAP) Pulse Ox O2 Delivery O2 Flow Rate FiO2 04/21/20 06:45 98.3 84 18 209/85 (126) 98 Room Air 98.3 EKG: EKG: EKG consistent with normal sinus rhythm. Ventricular rate of 76 bpm. [place] normal. Small Q waves noted in the inferior leads. Nonspecific T wave normality is noted in the lateral precordial leads. No acute ischemic changes appreciated. Similar to EKG from July 31, 2019. [] Radiology/Procedures: Radiology/Procedures: [] Course & Med Decision Making: Course & Med Decision Making Pertinent Labs and Imaging studies reviewed. (See chart for details) Patient is a 54-year-old female who presents with multiple complaints. Initial vital signs notable for systolic blood pressure approximately 200. Initial EKG shows no acute ischemic changes. Nonspecific T wave changes in the lateral leads are consistent with her baseline. Basic labs were obtained. Grossly unre markable. Troponin testing today within normal limits. Chest x-ray nonacute. On repeat examination patient's systolic blood pressure is now approximate 160. She does state that she has not taken her daily amlodipine. I am somewhat concerned that the patient reports indigestion sensation when her blood pressure is noted to be elevated. I did speak with the patient's cardiology team Dr. Celis regarding management of the patient. Overall I do have low suspicion for acute ischemic event currently are unstable angina. However I do feel she needs close follow-up. After discussion with her cardiology team patient does have an appointment scheduled in 7 days. She will obtain outpatient Lexiscan testing prior to this. Per the recommendations of Dr. Celis patient will begin taking 5 mg of Norvasc twice daily as well 25 mg of hydralazine 3 times a day as needed for systolic blood pressure greater than 160. Overall I do estimate the patient have a low risk heart score. I did discuss results of labs imaging as well as her plan of care in great detail with her and at [facility]. They are both agreeable to discharge home with close cardiology follow- up. Stable for discharge home. Jakob Disclaimer: Jakob Disclaimer: This electronic medical record was generated, in whole or in part, using a voice recognition dictation system. Departure Departure Impression: Primary Impression: Elevated blood pressure reading Additional Impressions: Generalized weakness Epigastric abdominal pain Disposition: HOME, SELF-CARE Condition: GOOD Referrals: LG DIGGS MD (PCP) ANIKET CELIS MD Patient Instructions: Hypertension Additional Instructions: Please follow-up with Dr. Celis at your next appointment on April 28, 2020. Please call their office ahead of time to schedule your outpatient Lexiscan. Please return the emergency department immediately should your symptoms return or worsen. Scripts Hydralazine Hcl (HYDRALAZINE HCL) 25 Mg Tablet 1 TAB PO TID PRN for 14 Days, #42 TAB 3 Refills Please take 3 times a day as needed for systolic blood pressure greater than 160 Prov: DELMA GARCÍA DO 04/21/20 Amlodipine Besylate (NORVASC) 5 Mg Tablet 5 MG PO BID for 14 Days, #28 TAB Prov: DELMA GARCÍA DO 04/21/20 Justicifation of Admission Dx: Justifications for Admission: Justification of Admission Dx: N/A DELMA GARCÍA DO Apr 21, 2020 07:25
[2020-04-21] MEDS: ASPIRIN CHEWABLE 81 MG TABLET. PO ONE (07:27)
[2020-04-21 07:28] LABS: ALBUMIN 3.4 g/dL (3.4-5.0); ALBUMIN/GLOBULIN RATIO 0.9 (1.0-1.7); TOTAL BILIRUBIN 0.5 mg/dL (0.2-1.0); TOTAL PROTEIN 7.4 g/dL (6.4-8.2)
[2020-04-21] MEDS: FAMOTIDINE 20 MG TABLET. PO ONE (07:47)
--- NOTE | 2020-04-21 07:48 | RAD ---
AP chest. HISTORY: Chest pain AP view was taken of the chest. Lungs are clear. Heart is normal in size. There is no pleural effusion. IMPRESSION: 1. No acute chest disease. Electronically signed by: Lalo Salazar MD (04/21/2020 7:44 AM) [id number]
[2020-04-21 08:38] LABS: BILIRUBIN,URINE NEGATIVE (NEG); CLARITY,URINE CLEAR; COLOR,URINE YELLOW; NITRITE,URINE NEGATIVE (NEG); PROTEIN,URINE NEGATIVE (NEG-TRACE); UROBILINOGEN,URINE 0.2 mg/dL (0.2 mg/dL)
[2020-04-21 09:05] LABS: HYALINE CASTS, URINE OCCASIONAL /HPF; SQUAMOUS EPITHELIAL CELL,UR MOD /LPF
[2020-04-21 09:07] LABS: BACTERIA,URINE MODERATE /HPF (0-FEW); RBC,URINE 0 /HPF (0-2); WBC,URINE OCC /HPF (0-4); YEAST,URINE PRESENT /HPF
[2020-04-21] MEDS ORDERED: HYDR-2868 PO (09:19)
[2020-04-21] MEDS ORDERED: AMLO5TAB4 PO (09:19)
[2020-04-21 09:32] VITALS: BP 159/70
[2020-04-21] MEDS: amLODIPine BESYLATE 5 MG TABLET PO ONE (09:32)
--- NOTE | 2020-04-21 15:02 | EKG ---
[facility] [address] [place] [address] Test Date: 2020-04-21 Test Time: 06:49:14 Pat Name: CRIS MILLER Department: Room: Gender: F Commercial Illustrator: : 1965 Requested By: DELMA GARCÍA Order Number: [id number] Reading MD: Measurements Intervals [place] Rate: 80 P: 56 [place]: 124 QRS: 46 QRSD: 88 T: 112 QT: 384 QTc: 447 Interpretive Statements SINUS RHYTHM T ABNORMALITY IN LATERAL LEADS INFEROLATERAL LEADS ABNORMAL ECG RI6.01 No previous ECG available for comparison
--- NOTE | 2020-04-21 15:02 | EKG ---
[facility] [address] [place] [address] Test Date: 2020-04-21 Test Time: 06:59:41 Pat Name: CRIS MILLER Department: Room: Gender: F Entry Specialists: : 1965 Requested By: DELMA GARCÍA Order Number: [id number] Reading MD: Measurements Intervals [place] Rate: 76 P: 59 [place]: 134 QRS: 46 QRSD: 86 T: 118 QT: 366 QTc: 416 Interpretive Statements SINUS RHYTHM QRS(T) CONTOUR ABNORMALITY CONSIDER ANTEROLATERAL MYOCARDIAL DAMAGE POSSIBLY ABNORMAL ECG RI6.01 Compared to ECG 04/21/2020 06:49:14 T-wave abnormality no longer present
== END 2020-04-21 09:43 | disposition home or self-care (01) ==
LOC: ER 06:23
DX: R03.0 Elevated blood-pressure reading, without diagnosis of hypertension (principal); R10.13 Epigastric pain; R53.1 Weakness; R19.7 Diarrhea, unspecified; E78.00 Pure hypercholesterolemia, unspecified; I10 Essential (primary) hypertension; F17.200 Nicotine dependence, unspecified, uncomplicated; Z90.710 Acquired absence of both cervix and uterus; Z90.49 Acquired absence of other specified parts of digestive tract; Z98.890 Other specified postprocedural states; Z88.0 Allergy status to penicillin; Z88.1 Allergy status to other antibiotic agents; Z88.2 Allergy status to sulfonamides; Z88.5 Allergy status to narcotic agent; Z88.8 Allergy status to other drugs, medicaments and biological substances
CPT/HCPCS: 36415; 71045; 80053; 81001; 83690; 84484; 85025; 87086; 93005; 99285

== ENCOUNTER → 2020-05-12 | Outpatient (CLI) | payer OTHER ==
[2020-04-21 09:32] VITALS: BP 159/70
[~2020-05-12] MED LIST changes: +AMLO5TAB4 PO; +HYDR-2868 PO
[2020-05-12 10:12] LABS: CHOLESTEROL/HDL RATIO 2.9
== END ==
LOC: LAB 09:41
PROVIDERS: ATTEND Internal Medicine Cardiovascular Disease
DX: E78.5 Hyperlipidemia, unspecified (principal)
CPT/HCPCS: 36415; 80061; 83721

== ENCOUNTER → 2020-06-08 | Outpatient (CLI) | payer OTHER ==
[2020-06-08 14:51] LABS: ALBUMIN 3.6 g/dL (3.4-5.0); ALBUMIN/GLOBULIN RATIO 0.9 (1.0-1.7); CALCIUM 9.1 mg/dL (8.5-10.1); CREATININE 1.4 mg/dL (0.6-1.0); POTASSIUM 4.3 mmol/L (3.5-5.1); TOTAL BILIRUBIN 0.5 mg/dL (0.2-1.0); TOTAL PROTEIN 7.6 g/dL (6.4-8.2)
== END | disposition home or self-care (01) ==
LOC: LAB 13:26
PROVIDERS: ATTEND Internal Medicine Cardiovascular Disease
DX: R09.89 Other specified symptoms and signs involving the circulatory and respiratory systems (principal)
CPT/HCPCS: 80053; 82088; 84244

== ENCOUNTER → 2020-08-17 | Outpatient (CLI) | payer OTHER ==
[~2020-08-17] MED LIST changes: +AMLO-186 PO; -AMLO5TAB10 PO; +REGADENOSON 0.4 MG/5 ML DISP.SYRIN. IV ONE
--- NOTE | 2020-08-17 14:37 | RAD ---
MR#: [id number] Date of Study: 08/17/2020 Ordering Physician: ANIKET REICH, Referring Physician: VALERI ADAMS Tech: RT Nikki BasurtoR) (N) APPROVED REPORT Test Type: Pharmacological Stress Nurse/Tech: REHAN MELCHOR Test Indications: ELEVATED BLOOD PRESSURE Cardiac History: HTN- SEE EMR Medications: SEE EMR Medical History: SEE EMR Resting ECG: SR, T-WAVE INVERSION NOTED IN LEADS: II, II, AVF Resting Heart Rate: 61 bpm Resting Blood Pressure: 143/48mmHg Pretest Chest Pain: No chest pain Nurse/Tech Notes S1,S2, LUNGS COARSE, PT HAS A CHRONIC PRODUCTIVE COUGH FROM SMOKING. VSS. DENIED CP OR SOA. Consent: The procedure was explained to the patient in lay terms. Informed consent was witnessed. Mekhi eout was entered into [employer]. History and Stress Test performed by RT Sherine (R) (N) Pharm. Details Pharmacologic stress testing was performed using 0.4mg per 5ml of regadenoson given intravenously ove r 7-10 seconds. Stress Symptoms PT C/O SOA AND WAS COUGHING FORCEFULLY DURING THE START OF THE TEST. VSS. PT RETURNED TO HER BASELINE WITHIN A COUPLE MINUTES. SHE PREVIOUSLY REPORTED A HEADACHE. POST EXERCISE Reason for Termination: Infusion complete Max HR: 115 bpm Max Blood Pressure: 140/48mmHg Blood Pressure response to exercise: Abnormal blood pressure response during stress. Heart Rate response to exercise: NORMAL HEART RATE RESPONSE DURING STRESS. Chest Pain: No. Arrhythmia: No. INTERPRETATION Stress EKG Conclusion: No evidence of stress induced EKG changes. Imaging Protocol IMAGE PROTOCOL: Rest Tc-99m/stress Tc-99m 1 day Rest: Stress: Viability: Radiopharm.Tc99m UruujumrnPz01t Sestamibi Dose10.5mCi 31.6mCi Duration 13min. 13min. Img Date 08/17/2020 08/17/2020 Inj-Img Hlhd22byi. 60min. Rest Admin Site:IV - Right AntecubitalAdministrator:RT Nikki AldanaR)(N) Stress Admin Site: IV - Right AntecubitalAdministrator: Cassie Chacko, RT (R)(N) STRESS DATA End Diast. Vol.76.0mlLVEDV index BSA44.0ml End Syst. Vol.20.0mlLVESV index BSA12.0ml Myocardial Pkue477.0gEject. Mwvmzpmy55.0% Stress Scores Regional WT2.00Summed WT16.00 Regional WM0.00Summed WM3.00 The rest and stress images show normal perfusion, normal contraction and thickening. LV Perf. Quant 17 Seg. SSS0.00 17 Seg. SRS0.00 17 Seg. SDS0.00 Stress Defect Extent (% LAD)0.00Rest Defect Extent (% LAD)0.00Rev. Defect Extent (% LAD)0.00 Stress Defect Extent (% LCX) 0.00Rest Defect Extent (% LCX)0.00Rev. Defect Extent (% LCX)0.00 Stress Defect Extent (% RCA)0.00Rest Defect Extent (% RCA)0.00Rev. Defect Extent (% RCA)0.00 Stress Defect Extent (% AMBER)0.00Rest Defect Extent (% AMBER)0.00Rev. Defect Extent (% AMBER)0.00 Other Information Quality:Good Risk Assessment: Low Risk Conclusion 1. No evidence of EKG changes with stress testing. 2. Normal perfusion at stress/rest. 3. Low risk study. 4. EF > 60%. Signed by : Aniket Reich, Electronically Approved : 08/17/2020 14:36:53
== END ==
LOC: NM 10:30
PROVIDERS: ATTEND Internal Medicine Cardiovascular Disease
DX: I10 Essential (primary) hypertension (principal)
CPT/HCPCS: 78452; 93017; A9500; J2785

== ENCOUNTER → 2020-09-02 | Outpatient (CLI) | payer OTHER ==
[~2020-09-02] MED LIST changes: -REGADENOSON 0.4 MG/5 ML DISP.SYRIN. IV ONE
--- NOTE | 2020-09-02 15:54 | KCIC ---
Bilateral digital screening mammograms: Reason for examination: Routine screening. Comparison is made to previous study dated 03/12/2018. Interpretation was made with the benefit of CAD. The skin and nipples show no abnormalities. No abnormal axillary lymph nodes are seen. The breast par enchyma is heterogeneously dense. (Breast density: Category C) There continue to be small nodular par enchymal densities bilaterally which are stable. In the right breast on oblique view probably in the central 12:00 position, there appears to be a small 6.4 mm nodular density. There are no other new do minant masses, suspicious calcifications or architectural distortion. A few benign calcifications are again seen. Impression: 6.4 mm nodular density seen just above the nipple line approximately 4.5 cm deep to the nipple on the oblique view of the right breast probably at the central 12:00 position. Recommend further evaluatio n with coned compression views and ultrasound. Your patient's mammogram demonstrates that she has dense breast tissue (breast density category C or D), which could hide abnormalities, and if she has other risk factors for breast cancer that have bee n identified, she might benefit from supplemental screening tests that may be suggested by you as her ordering physician. Dense breast tissue, in and of itself, is a relatively common condition. Therefo re, this information is not provided to cause undue concern, but rather to raise your awareness and t o promote discussion with your patient regarding the presence of other risk factors, in addition to d ense breast tissue. Your patient's mammography results will be sent to her. BI-RADS Category 0: Incomplete. Needs additional imaging evaluation. "Our facility is accredited by the [employer] Mammography Program." This patient's information has been entered into a reminder system for the patient to be notified wit h the results of her examination and a target date for the next mammogram. Electronically signed by: Karen Thornton MD (09/02/2020 3:52 PM) [id number]
== END ==
LOC: KCIC MAMMO 14:02
PROVIDERS: ATTEND Family Medicine
DX: Z12.31 Encounter for screening mammogram for malignant neoplasm of breast (principal); N64.89 Other specified disorders of breast
CPT/HCPCS: 77067

== ENCOUNTER → 2020-09-07 | Outpatient (CLI) | payer OTHER ==
--- NOTE | 2020-09-07 09:22 | RAD ---
Examination: 1. Right digital diagnostic mammogram. 2. Limited right breast ultrasound. INDICATION: 55-year-old woman recalled from screening for nodule in the central superior right breast . COMPARISON: Mammograms of 09/02/2020 and 03/12/2018 TECHNIQUE: Full field right ML view and spot compression right cc view were obtained in addition to t argeted ultrasound of the superior right breast. Computer-aided detection was utilized. FINDINGS: Heterogeneously dense breast parenchyma. The questioned nodular density did not persist on additional mammographic views. Targeted ultrasound of the superior right breast revealed no suspicious sonographic findings. Represe ntative sonographic images were acquired at the 12:00 position 4.5 cm from the nipple. No axillary ad enopathy. IMPRESSION: No persistent mammographic abnormality or sonographic correlate. No evidence of malignancy. BI-RADS Category 1 Negative Recommend return to routine screening. Patient entered into a reminder system with targeted due date for next mammogram Electronically signed by: Goyo Doyle MD (09/07/2020 9:19 AM) [id number]
== END ==
LOC: MAMMO 07:38
PROVIDERS: ATTEND Family Medicine
DX: R92.8 Other abnormal and inconclusive findings on diagnostic imaging of breast (principal)
CPT/HCPCS: 76641; 77065